=== PATIENT | male | born 1980 | race Caucasian/White ===

== ENCOUNTER → 2018-10-28 | Outpatient (CLI) | payer BC ==
[~2018-10-28] MED LIST: KET10 PO; LISI-374 PO; MULT1CAP41 PO; PRAV10TA45 PO
[2018-10-28 15:46] LABS: LDL CHOLESTEROL 159 mg/dl
== END ==
LOC: LAB 15:09
PROVIDERS: ATTEND Family Medicine
DX: R03.0 Elevated blood-pressure reading, without diagnosis of hypertension (principal); E66.01 Morbid (severe) obesity due to excess calories
CPT/HCPCS: 36415; 82040; 82247; 82310; 82374; 82435; 82465; 82565; 82947; 83036; 83718; 84075; 84132; 84155; 84295; 84443; 84450; 84460; 84478; 84520; 85027